=== PATIENT | female | born 1940 | race Caucasian/White ===

== ENCOUNTER 2016-07-08 09:12 | Day surgery (SDC) | payer OTHER ==
[2016-07-08] MEDS ORDERED: TETRACAINE 0.5% OPHTH 1 DOSE AFFEYE ONE ×2 (10:00→13:08)
[2016-07-08] MEDS ORDERED: VIGAMOX 0.5% OPHTH 1 DOSE AFFEYE ONE ×5 (10:05→13:29)
[2016-07-08] MEDS ORDERED: NS 500 ML IV 500 ML IV ONE (10:11)
[2016-07-08] MEDS ORDERED: PROLENSA OPHTH 1 DOSE AFFEYE ONE (10:16)
[2016-07-08] MEDS ORDERED: ALPHAGAN-P OPHTH 1 DOSE AFFEYE ONE (10:17)
[2016-07-08] MEDS ORDERED: AK-DILATE 2.5% OPHTH 1 DOSE OP ONE ×3 (10:18→10:20)
[2016-07-08] MEDS ORDERED: CYCLOGYL 1% OPHTH 1 DOSE OP ONE ×3 (10:18→10:20)
[2016-07-08] MEDS ORDERED: MYDRIACIL OPHTH 1 DOSE AFFEYE ONE ×3 (10:18→10:20)
[2016-07-08] MEDS ORDERED: BETADINE OPHTH SOLN 5% EACHEYE ONE (13:08)
[2016-07-08] MEDS ORDERED: BSS OPHTH (PLAIN) 500 ML with VANCOMYCIN HCL 500 MG VIAL 25 MG, ADRENALINE CHL INJ 1 MG IR ONE ×3 (13:16)
[2016-07-08] MEDS ORDERED: ADRENALINE CHL INJ IJ ONE (13:18)
[2016-07-08] MEDS ORDERED: DUOVISC IO ONE (13:18)
[2016-07-08] MEDS ORDERED: XYLOCAINE-MPF 1% IJ ONE (13:18)
[2016-07-08] MEDS ORDERED: DIPRIVAN VIAL ONE (15:25)
[2016-07-08 16:21] VITALS: BP 133/76
== END 2016-07-08 13:55 | disposition home or self-care (01) ==
LOC: SURG1 09:12
PROVIDERS: ATTEND Ophthalmology
PROC: 08RK3JZ Replacement of Left Lens with Synthetic Substitute, Percutaneous Approach (ICD-10-PCS; principal; 2016-07-08 18:00)
PROC: 08J1XZZ Inspection of Left Eye, External Approach (ICD-10-PCS; principal; 2016-07-08 18:00)
PROC: 08DK3ZZ Extraction of Left Lens, Percutaneous Approach (ICD-10-PCS; principal; 2016-07-08 18:00)
DX: H25.12 Age-related nuclear cataract, left eye (principal); H25.012 Cortical age-related cataract, left eye; H52.222 Regular astigmatism, left eye
CPT/HCPCS: 99100; A4217; J0170; J3370; J3490

== ENCOUNTER 2016-07-22 08:44 | Day surgery (SDC) | payer OTHER ==
[2016-07-22] MEDS ORDERED: NS 500 ML IV 500 ML IV ONE (09:29)
[2016-07-22] MEDS ORDERED: TETRACAINE 0.5% OPHTH 1 DOSE AFFEYE ONE ×2 (09:32→13:05)
[2016-07-22] MEDS ORDERED: VIGAMOX 0.5% OPHTH 1 DOSE AFFEYE ONE ×4 (09:33→13:16)
[2016-07-22] MEDS ORDERED: PROLENSA OPHTH 1 DOSE AFFEYE ONE (09:44)
[2016-07-22] MEDS ORDERED: ALPHAGAN-P OPHTH 1 DOSE AFFEYE ONE (09:45)
[2016-07-22] MEDS ORDERED: AK-DILATE 2.5% OPHTH 1 DOSE OP ONE ×4 (09:46→09:49)
[2016-07-22] MEDS ORDERED: CYCLOGYL 1% OPHTH 1 DOSE OP ONE ×4 (09:46→09:49)
[2016-07-22] MEDS ORDERED: MYDRIACIL OPHTH 1 DOSE AFFEYE ONE ×4 (09:46→09:49)
[2016-07-22] MEDS ORDERED: BETADINE OPHTH SOLN 5% EACHEYE ONE ×2 (13:05)
[2016-07-22] MEDS ORDERED: DUOVISC IO ONE ×2 (13:09)
[2016-07-22] MEDS ORDERED: XYLOCAINE-MPF 1% IJ ONE (13:09)
[2016-07-22] MEDS ORDERED: ADRENALINE CHL INJ IJ ONE (13:09)
[2016-07-22] MEDS ORDERED: BSS OPHTH (PLAIN) 500 ML with VANCOMYCIN HCL 500 MG VIAL 25 MG, ADRENALINE CHL INJ 1 MG IR ONE ×3 (13:09)
[2016-07-22] MEDS ORDERED: TobraDEX OPHTH SUSP 1 DOSE AFFEYE ONE (13:24)
[2016-07-22 14:11] VITALS: BP 143/77
== END 2016-07-22 12:50 | disposition home or self-care (01) | DRG 117 ==
LOC: SURG1 08:44
PROVIDERS: ATTEND Ophthalmology
PROC: 08RJ3JZ Replacement of Right Lens with Synthetic Substitute, Percutaneous Approach (ICD-10-PCS; principal; 2016-07-22 13:45)
PROC: 08DJ3ZZ Extraction of Right Lens, Percutaneous Approach (ICD-10-PCS; principal; 2016-07-22 13:45)
DX: H25.11 Age-related nuclear cataract, right eye (principal); H25.011 Cortical age-related cataract, right eye; H52.221 Regular astigmatism, right eye
CPT/HCPCS: 99100; A4217; J0170; J3370